=== PATIENT | male | born 1985 | race Caucasian/White ===

== ENCOUNTER 2021-01-29 08:24 | Emergency (ER) | payer BC ==
[~2021-01-29] VITALS: Ht 177.8 cm; Wt 88.6 kg
[2021-01-29 08:42] VITALS: BP 131/86; Ht 177.8 cm; Wt 88.6 kg
[2021-01-29] MEDS ORDERED: AMOXICILLIN500 M1 PO (09:17)
== END 2021-01-31 10:32 | disposition home or self-care (01) ==
LOC: D.ER 08:24
DX: J06.9 Acute upper respiratory infection, unspecified (principal); K04.7 Periapical abscess without sinus